=== PATIENT | female | born 1935 | race Caucasian/White ===

== ENCOUNTER → 2021-08-11 | Outpatient (CLI) | payer OTHER, BC ==
[~2021-08-11] MED LIST: ADVAIR 250-501 EACH INH; ARTHRITIS PAIN650 M3 PO; ASPIRIN EC81 M1 PO; CALCIUM 600 +1 EAC1 PO; CHLORTHALIDONE25 MG PO; FISH OIL 1,0001 EAC7 PO; HYZAAR 100-251 EACH PO; LASIX 20 MG TAB20 MG PO; MOBIC7.5 MG PO; NEXIUM40 MG PO; POTASSIUM20 PO; TUDORZA PRESS400 MCG IH; ULTRACET TABLET1 TAB PO; VITAMIN E400 UNI6 PO; VOLTAREN GEL 1100 G2 TOP; ZOCOR40 MG PO
== END ==
LOC: SJCVCIMAG 11:13 → SJCVC 11:13
PROVIDERS: ATTEND Internal Medicine Cardiovascular Disease
DX: R94.31 Abnormal electrocardiogram [ECG] [EKG] (principal); I47.1 Supraventricular tachycardia; I49.3 Ventricular premature depolarization; I70.1 Atherosclerosis of renal artery; I77.811 Abdominal aortic ectasia; I12.9 Hypertensive chronic kidney disease with stage 1 through stage 4 chronic kidney disease, or unspecified chronic kidney disease; N18.9 Chronic kidney disease, unspecified; E78.5 Hyperlipidemia, unspecified; R10.10 Upper abdominal pain, unspecified; J44.9 Chronic obstructive pulmonary disease, unspecified; C50.919 Malignant neoplasm of unspecified site of unspecified female breast; I25.10 Atherosclerotic heart disease of native coronary artery without angina pectoris; D64.9 Anemia, unspecified; K21.9 Gastro-esophageal reflux disease without esophagitis; M19.90 Unspecified osteoarthritis, unspecified site; Z79.82 Long term (current) use of aspirin; Z79.899 Other long term (current) drug therapy; Z88.0 Allergy status to penicillin